=== PATIENT | male | born 1965 | race Caucasian/White ===

== ENCOUNTER 2018-07-03 17:18 | Emergency (ER) | payer BC ==
[2018-07-03] MEDS ORDERED: Bupivacaine 0.5% 30 ML SDV INFILT ONE (17:19)
[2018-07-03 17:31] VITALS: BP 146/96
--- NOTE | 2018-07-03 17:38 | EDM.PDOC ---
ED HPI GENERAL MEDICAL PROBLEM - General Stated Complaint: L FINGER LACERATION Time Seen by Provider: 07/03/18 17:18 Source of Information: Reports: Patient History Limitations: Reports: No Limitations - History of Present Illness INITIAL COMMENTS - FREE TEXT/NARRATIVE: 53 y.o.w.m came by PC to the ed due to Laceration at his left 5th finger, which occurred at home while doing dishes, on a new kitchen knife. 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 No other acute medical issues. BP 146/96 RR 18 Pulse ox 98% on RA Temp 36.8 Pulse 87 Onset Date: 07/03/18 Onset Time: 16:00 Duration: Minutes: Location: Reports: Upper Extremity, Left (5th finger) Quality: Reports: Ache, Stabbing Severity: Mild Improves with: Reports: Rest Worsens with: Reports: Movement Context: Reports: Trauma Associated Symptoms: Reports: No Other Symptoms Left 5-Little finger Pain Score (Numeric/FACES): 6 - Related Data Allergies Allergy/AdvReac Type Severity Reaction Status Date / Time No Known Allergies Allergy Verified 07/03/18 17:33 Home Meds: Home Meds Aspirin [Caleb Chewable Aspirin] 81 mg PO DAILY 08/07/13 [History] Lisinopril/Hydrochlorothiazide [Zestoretic 20-25 mg Tablet] 1 each PO DAILY [History] Polyethylene Glycol 3350 [MiraLAX] 17 gm PO BID PRN 11/21/15 [History] Ranitidine [Zantac] 75 mg PO ASDIRECTED PRN 11/22/15 [History] Amoxicillin/Potassium Clav [Augmentin 875-125 Tablet] 1 each PO BID #20 tablet 07/03/18 [Rx] Past Medical History Other HEENT History: PRE-GLAUCOMA, FARSIGHTED BUT DOES NOT WEAR GLASSES. Cardiovascular History: Reports: Hypertension Other Respiratory History: SMOKER Gastrointestinal History: Reports: Diverticulosis, Hemorrhoids Other Gastrointestinal History: RECENT DIVERTICULITIS, CHRONIC HEARTBURN TREATS WITH OTC MEDS Other Musculoskeletal History: LESION ULNAR NERVE, ISCHEMIA OF FINGER, CARPAL TUNNEL SYNDROME, LT WRIST FX, HYPOTHENAR HAMMER SYNDROME OF LEFT HAND. STATES HAS BEEN TREATED BY CHIROPRACTOR ON OCCASION FOR CHRONIC BACK PAIN. 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 9 Immunologic History: Reports: None Oncologic (Cancer) History: Reports: Leukemia Dermatologic History: Reports: None - Infectious Disease History Infectious Disease History: Reports: Chicken Pox - Past Surgical History HEENT Surgical History: Reports: Oral Surgery GI Surgical History: Reports: Cholecystectomy, Hernia, Inguinal Review of Systems - Review of Systems Review Of Systems: See Below Constitutional: Reports: No Symptoms Eyes: Reports: No Symptoms Ears: Reports: No Symptoms Nose: Reports: No Symptoms Mouth/Throat: Reports: No Symptoms Respiratory: Reports: No Symptoms Cardiovascular: Reports: No Symptoms GI/Abdominal: Reports: No Symptoms Genitourinary: Reports: No Symptoms Musculoskeletal: Reports: Hand Pain (5th finger) Skin: Reports: Wound (left 5th finfer wound) Neurological: Reports: No Symptoms Psychiatric: Reports: No Symptoms ED EXAM, GENERAL - Physical Exam Exam: See Below Exam Limited By: No Limitations General Appearance: Alert, WD/WN, Mild Distress Eye Exam: Bilateral Eye: Normal Inspection Ears: Normal External Exam Ear Exam: Bilateral Ear: Auricle Normal Nose: Normal Inspection, Normal Mucosa Throat/Mouth: Normal Inspection, Normal Lips, Normal Voice, No Airway Compromise Head: Atraumatic, Normocephalic Neck: Normal Inspection, Supple, Non-Tender Respiratory/Chest: No Respiratory Distress, Lungs Clear, Normal Breath Sounds, No Accessory Muscle Use, Chest Non-Tender Cardiovascular: Normal Peripheral Pulses, Regular Rate, Rhythm, No Edema, No Murmur, No Rub Peripheral Pulses: 1+: Radial (L) GI/Abdominal: Normal Bowel Sounds, Soft, Non-Tender, No Organomegaly, No Abnormal Bruit, No Mass, Pelvis Stable (Male) Exam: Deferred Rectal (Males) Exam: Deferred Back Exam: Normal Inspection, Full Range of Motion Extremities: Normal Inspection, Normal Range of Motion, Non-Tender, No Pedal Edema Neurological: Alert, Oriented, CN II-XII Intact, Normal Cognition, Normal Gait, Normal Reflexes, No Motor/Sensory Deficits Psychiatric: Normal Affect, Normal Mood Skin Exam: Warm, Dry, Normal Color, Wound/Incision (1 cm Laceration 5th finger distal phalanx, ) Lymphatic: No Adenopathy ED TRAUMA PROCEDURES - Laceration/Wound Repair Left Digit - 5th (Baby) Lac/Wound Length In cm: 1 Appearance: Subcutaneous, Linear, Mildly Contaminated Anesthetic Type: Local Local Anesthesia - Bupivicaine (Marcaine): 0.5% Plain Local Anesthetic Volume: 3cc Skin Prep: Providone-Iodine (Betadine) Saline Irrigation (cc's): 2 Exploration/Debridement/Repair: Wound Explored, In a Bloodless Field, Explored to Base Suture Size: 4-0 # of Sutures: 3 Suture Type: Other (Ethilon) Drain Placement: No Sterile Dressing Applied: Nurse Tetanus Status Addressed: Yes (< 10 years, does not want to be updated) Complications: No Course - Vital Signs Text/Narrative:: 53 y.o.w.m came by PC to the ed due to Laceration at his left 5th finger, which occurred at home while doing dishes, on a new kitchen knife. 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 No other acute medical issues. BP 146/96 RR 18 Pulse ox 98% on RA Temp 36.8 Pulse 87 PE: WNWD W M with a non active bleeding laceration left 5th distal phalanx. Procedure: Please see note above Impression: LAC left 5th finger, repaired in the ED Tx: Wound care, Augmemtin Reexam: Improved Plan: D/C with instructions Last Recorded V/S: Last Vital Signs Temp 36.4 C 07/03/18 17:20 Pulse 81 07/03/18 17:20 Resp 16 07/03/18 17:20 BP 146/96 H 07/03/18 17:20 Pulse Ox 95 07/03/18 17:20 - Orders/Labs/Meds Meds: Medications Discontinued Medications Generic Name Dose Route Start Last Admin Trade Name Ceci PRN Reason Stop Dose Admin Amoxicillin/Clavulanate Potassium 1 tab 07/03/18 17:50 07/03/18 18:00 Augmentin 875 Mg/125 Mg PO 07/03/18 17:51 1 tab ONETIME ONE Administration Departure - Departure Time of Disposition: 17:51 Disposition: Home, Self-Care 01 Condition: Good Clinical Impression: Laceration - Discharge Information Prescriptions: Amoxicillin/Potassium Clav [Augmentin 875-125 Tablet] 1 each PO BID #20 tablet Referrals: Cayden Peter MD [Primary Care Provider] - Forms: ED Department Discharge Additional Instructions: Please apply neosporine ointment to wound twice daily. Please take Abx as recommended, wound check in 2 days, suture removal in 7- 10 days. Please come back if your symptoms get worse acutely
[2018-07-03] MEDS ORDERED: Amoxicillin/Clavulanate K 875-125 MG Tab PO ONE (17:50)
== END 2018-07-03 18:00 | disposition home or self-care (01) ==
LOC: FB.ED 17:18
DX: S61.217A Laceration without foreign body of left little finger without damage to nail, initial encounter (principal); I10 Essential (primary) hypertension; Z79.82 Long term (current) use of aspirin; Z79.899 Other long term (current) drug therapy; W26.0XXA Contact with knife, initial encounter; Y93.G1 Activity, food preparation and clean up; Y92.009 Unspecified place in unspecified non-institutional (private) residence as the place of occurrence of the external cause
CPT/HCPCS: 12001; 99282; A9270-GY; J3490

== ENCOUNTER 2021-09-08 06:21 | Day surgery (SDC) | payer BC, OTHER ==
[~2021-09-08 06:21] MED LIST: Lactated Ringers 1,000 ML IV SCH; Sodium Chloride 0.9% 10 ML Syringe FLUSH PRN
[2021-09-08] MEDS ORDERED: Glycopyrrolate 0.2 MG/ML 5 ML MDV IV ONE (06:22)
[2021-09-08] MEDS ORDERED: Propofol 200 MG/20 ML SDV IV ONE (06:22)
[2021-09-08] MEDS ORDERED: Lidocaine 1% PF 2 ML SDV INJECT ONE (06:22)
[2021-09-08 08:31] VITALS: BP 161/96; PULSE 52
== END 2021-09-08 08:45 | disposition home or self-care (01) ==
LOC: FB.SDS 06:21
PROVIDERS: ATTEND Surgery
DX: D12.0 Benign neoplasm of cecum (principal); K57.30 Diverticulosis of large intestine without perforation or abscess without bleeding; I10 Essential (primary) hypertension; K21.9 Gastro-esophageal reflux disease without esophagitis; F17.210 Nicotine dependence, cigarettes, uncomplicated; Z79.899 Other long term (current) drug therapy; Z98.890 Other specified postprocedural states
CPT/HCPCS: 00811; 45384; 88305; J2704; J3490; J7120

== ENCOUNTER 2023-06-14 17:53 | Emergency (ER) | payer BC, OTHER ==
[2023-06-14] MEDS ORDERED: Sodium Chloride 0.9% 10 ML Syringe FLUSH PRN (17:56)
[2023-06-14] MEDS ORDERED: Labetalol 20 MG/4 ML Syringe IVPUSH ONE (17:58)
[2023-06-14 18:15] LABS: BASOPHILS ABSOLUTE AUTO 0.1 x10-3/uL (0.0-0.3); EOSINOPHILS ABSOLUTE AUTO 0.2 x10-3/uL (0.0-0.6); EOSINOPHILS PERCENT AUTO 2.2 % (0.1-6.8); HEMATOCRIT 51.5 % (38.3-50.1); HEMOGLOBIN 18.1 g/dL (12.9-17.7); LYMPHOCYTES ABSOLUTE AUTO 3.6 x10-3/uL (0.5-4.5); LYMPHOCYTES PERCENT AUTO 35.3 % (15.8-45.3); MEAN CORPUSCULAR HEMOGLOBIN 31.8 pg (27.0-33.3); MEAN CORPUSCULAR HGB CONC 35.2 g/dL (28.7-35.3); MEAN CORPUSCULAR VOLUME 90.2 fL (80.8-98.7); MEAN PLATELET VOLUME 8.4 fL (6.7-11.0); MONOCYTES ABSOLUTE AUTO 0.9 x10-3/uL (0.0-1.2); MONOCYTES PERCENT AUTO 8.9 % (5.5-15.2); NEUTROPHILS ABSOLUTE AUTO 5.3 x10-3/uL (1.7-6.9); NEUTROPHILS PERCENT AUTO 52.6 % (40.3-71.8); PLATELET COUNT,PLT 257 x10(3)uL (117-477); RED BLOOD CELL COUNT 5.71 x10(6)uL (3.90-5.90); RED CELL DISTRIBUTION WIDTH 12.6 % (12.4-15.0)
[2023-06-14 18:20] LABS: BLOOD UREA NITROGEN,BUN 13 mg/dL (7-18); BUN/CREATININE RATIO 11.8 (9-20); CALCIUM 9.5 mg/dL (8.6-10.2); CARBON DIOXIDE,CO2 33 mmol/L (21-32); CHLORIDE,CL 101 mmol/L (100-110); CREATININE 1.1 mg/dL (0.70-1.30); ESTIMATED GFR 77 mL/min (>60); GLUCOSE RANDOM 87 mg/dL (80-116); POTASSIUM,K 3.1 mmol/L (3.5-5.3); SODIUM,NA 141 mmol/L (135-145)
[2023-06-14] MEDS ORDERED: hydrALAZINE 20 MG/ML SDV IVPUSH STA (18:24)
[2023-06-14] MEDS ORDERED: cloNIDine 0.1 MG Tab PO ONE (18:24)
[2023-06-14 18:26] LABS: A/G RATIO 1.1; ALANINE AMINOTRANSFERASE,ALT 26 U/L (12-36); ALKALINE PHOSPHATASE 105 IU/L (56-112); ASPARTATE AMNIOTRANSFERASE,AST 25 IU/L (5-25); BILIRUBIN TOTAL 0.5 mg/dL (0.1-1.3); PROTEIN TOTAL,TP 7.8 g/dL (6.0-8.0)
[2023-06-14 19:03] LABS: INR 0.97 (1.00-1.24); PTT,PARTIAL THROMBOPLSTIN TIME 28.2 SECONDS (24.4-33.2)
[2023-06-14 21:26] VITALS: BP 120/79; PULSE 64
== END 2023-06-14 21:19 ==
LOC: FB.ED 17:53
DX: I67.9 Cerebrovascular disease, unspecified (principal); I16.9 Hypertensive crisis, unspecified; I10 Essential (primary) hypertension; K21.9 Gastro-esophageal reflux disease without esophagitis; F17.200 Nicotine dependence, unspecified, uncomplicated; Z79.899 Other long term (current) drug therapy; Z90.49 Acquired absence of other specified parts of digestive tract
CPT/HCPCS: 36415; 70450; 71045; 80053; 82947; 84484; 85025; 85610; 85730; 93005; 96374; 96375; 99285; A9270; J0360; J3490

== ENCOUNTER 2024-08-07 14:02 | Emergency (ER) | payer BC, OTHER ==
[2024-08-07 14:22] VITALS: BP 149/88; PULSE 57
[2024-08-07 14:36] LABS: BASOPHILS ABSOLUTE AUTO 0.1 x10-3/uL (0.0-0.3); BASOPHILS PERCENT AUTO 0.8 % (0.3-3.8); EOSINOPHILS ABSOLUTE AUTO 0.2 x10-3/uL (0.0-0.6); EOSINOPHILS PERCENT AUTO 2.3 % (0.1-6.8); HEMATOCRIT 45.2 % (38.3-50.1); HEMOGLOBIN 16.1 g/dL (12.9-17.7); LYMPHOCYTES ABSOLUTE AUTO 2.6 x10-3/uL (0.5-4.5); LYMPHOCYTES PERCENT AUTO 27.7 % (15.8-45.3); MEAN CORPUSCULAR HEMOGLOBIN 31.4 pg (27.0-33.3); MEAN CORPUSCULAR HGB CONC 35.7 g/dL (28.7-35.3); MONOCYTES ABSOLUTE AUTO 0.8 x10-3/uL (0.0-1.2); MONOCYTES PERCENT AUTO 8.8 % (5.5-15.2); NEUTROPHILS ABSOLUTE AUTO 5.7 x10-3/uL (1.7-6.9); NEUTROPHILS PERCENT AUTO 60.4 % (40.3-71.8); PLATELET COUNT,PLT 258 x10(3)uL (117-477); RED BLOOD CELL COUNT 5.14 x10(6)uL (3.90-5.90); RED CELL DISTRIBUTION WIDTH 12.7 % (12.4-15.0); WHITE BLOOD CELL COUNT,WBC 9.5 x10-3/uL (3.2-10.1)
[2024-08-07 14:45] LABS: BLOOD UREA NITROGEN,BUN 19 mg/dL (7-18); BUN/CREATININE RATIO 14.6 (9-20); CALCIUM 9.7 mg/dL (8.6-10.2); CARBON DIOXIDE,CO2 31 mmol/L (21-32); CHLORIDE,CL 102 mmol/L (100-110); CREATININE 1.3 mg/dL (0.70-1.30); EST CRCL DRUG DOSING (CG) 58.46 mL/min; ESTIMATED GFR 63 mL/min (>60); GLUCOSE RANDOM 108 mg/dL (80-116); SODIUM,NA 141 mmol/L (135-145)
[2024-08-07 14:52] LABS: ALANINE AMINOTRANSFERASE,ALT 29 U/L (12-36); ALBUMIN 3.9 g/dL (3.2-4.6); ALKALINE PHOSPHATASE 80 IU/L (56-112); ASPARTATE AMNIOTRANSFERASE,AST 25 IU/L (5-25); BILIRUBIN TOTAL 0.6 mg/dL (0.1-1.3); PROTEIN TOTAL,TP 7.7 g/dL (6.0-8.0)
== END 2024-08-07 15:40 ==
LOC: FB.ED 14:02
DX: G44.229 Chronic tension-type headache, not intractable (principal); I10 Essential (primary) hypertension; K21.9 Gastro-esophageal reflux disease without esophagitis; Z79.82 Long term (current) use of aspirin; Z79.899 Other long term (current) drug therapy
CPT/HCPCS: 36415; 70450; 80053; 85025; 99284